=== PATIENT | male | born 1975 | race Caucasian/White ===

== ENCOUNTER 2016-08-17 16:39 | Observation (INO) | payer BC ==
[2016-08-17] MEDS ORDERED: ONDANSETRON 4 MG/2 ML VIAL IVP ONE (17:16)
[2016-08-17] MEDS ORDERED: NS 1,000 ML IV ONE (17:16)
[2016-08-17] MEDS ORDERED: HYDROmorphONE/DILAUDID 1 MG/ML SYR IVP ONE ×2 (17:16→18:07)
--- NOTE | 2016-08-17 17:16 | EDPHY ---
H & P Stated Complaint: LUQ Abd - Personal History Current Tetanus/Diphtheria Vaccine: Yes Current Tetanus Diphtheria and Acellular Pertussis (TDAP): Yes - Medical/Surgical History Hx Asthma: No Hx Chronic Respiratory Disease: No Hx Diabetes: No Hx Cardiac Disease: No Hx Renal Disease: No Hx Cirrhosis: No Hx Alcoholism: No Hx HIV/AIDS: No Hx Splenectomy or Spleen Trauma: No - Social History Smoking Status: Never smoked Time Seen by Provider: 08/17/16 17:02 HPI/ROS: CHIEF COMPLAINT: Left upper quadrant abdominal pain since 9:00 a.m. HISTORY OF PRESENT ILLNESS: 41-year-old male via private vehicle complaining of left upper quadrant abdominal pain since this morning. Positive nausea. Positive vomiting. Attempted to eat an apple which he shortly vomited. Last oral intake was last evening. No back or flank pain. No urinary complaints. No trauma. No history of abdominal surgery. No rash. No urinary symptoms. No dyspnea. No testicle pain. No fever or chills REVIEW OF SYSTEMS: A ten point review of systems was performed and is negative with the exception of the items mentioned in the HPI PAST MEDICAL & SURGICAL HISTORY: No history of chronic abdominal pathology or abdominal surgeries. SOCIAL HISTORY: Intermittent alcohol PHYSICAL EXAM (Prior to examination, patient consented to physical exam, hands were washed and my usual and customary physical exam procedures followed) 1) GENERAL: Well-developed, well-nourished, alert and oriented. Appears uncomfortable 2) HEAD: Normocephalic, atraumatic 3) HEENT: Pupils equal, round, reactive to light bilaterally. Sclera anicteric. Nasopharynx, oropharynx, clear, no lesions. Ears bilaterally with normal tympanic membranes. 4) NECK: Full range of motion, no meningeal signs. 5) LUNGS: Clear auscultation bilaterally, no wheezes, no rhonchi, no retractions. 6) HEART: Regular rate and rhythm, no murmur, no heave, no gallop. 7) ABDOMEN: Guarding left upper quadrant he has associated mild tenderness, however significant pain with quadrant at McBurney's point,patient states "I had no idea I had pain there", 8) MUSCULOSKELETAL: Moving all extremities, no focal areas of tenderness, no obvious trauma. No peripheral edema or discoloration. 9) BACK: No CVA tenderness, no midline vertebral tenderness, no fluctuance, no step-off, no obvious trauma, no visual or palpable abnormality. 10) SKIN: No rash, no petechiae. 11) : Normal male external genitalia, positive cremasteric reflex bilaterally DIFFERENTIAL DIAGNOSIS: My differential diagnosis includes, but is not limited to, acute appendicitis, acute cholecystitis, bowel obstruction, acute pancreatitis, testicular torsion, gastritis and urinary tract infection. The patient understands that this diagnosis is provisional and can never be 100% accurate. This is a partial list of diagnoses considered. These considerations are based on history, physical exam, past history and reassessment. (Marc Carver) Constitutional: Initial Vital Signs Temperature (C) 36.9 C 08/17/16 17:06 Heart Rate 74 08/17/16 17:06 Respiratory Rate 14 08/17/16 17:06 Blood Pressure 109/68 08/17/16 17:06 O2 Sat (%) 94 08/17/16 17:06 O2 Delivery Mode Room Air Allergies/Adverse Reactions: No Known Allergies Allergy (Unverified 08/17/16 17:06) Medical Decision Making ED Course/Re-evaluation: 5:20 p.m.: Discussed case with Dr. Wang Armendariz in ER 6:01 p.m.: CT interpreted by radiologist as positive for appendicitis with no perforation. Discussed this with the patient, remains NPO since last evening. He is complaining of continued pain in the right lower quadrant. 6:06 p.m.: Phone consultation with Dr. Jarred Owusu who will evaluate patient (Marc Carver) I did not see this patient while he was in the emergency department. However his care was discussed with the PA while the patient was in the department. I agree with treatment plan and management (Wang Armendariz) - Data Points Laboratory Results: Laboratory Results 08/17/16 17:00 08/17/16 17:00 08/17/16 08/17/16 08/17/16 18:00 17:06 17:00 WBC RBC Hgb POC Hgb 16.3 gm/dL gm/dL (14.5-17.3) Hct POC Hct 48 % % (42.8-50.6) MCV MCH MCHC RDW Plt Count MPV Neut % (Auto) Lymph % (Auto) [place] % (Auto) Eos % (Auto) Baso % (Auto) Nucleat RBC Rel Count Absolute Neuts (auto) Absolute Lymphs (auto) Absolute Monos (auto) Absolute Eos (auto) Absolute Basos (auto) Absolute Nucleated RBC Immature Gran % Immature Gran # POC Sodium 141 mEq/L mEq/L (134-144) Sodium 139 mEq/L mEq/L (134-144) POC Potassium 3.9 mEq/L mEq/L (3.3-5.0) Potassium 4.1 mEq/L mEq/L (3.5-5.2) POC Chloride 103 mEq/L mEq/L (96-108) Chloride 104 mEq/L mEq/L (97-110) Carbon Dioxide 22 mEq/l mEq/l (22-31) Anion Gap 13 mEq/L mEq/L (8-16) POC BUN 12 mg/dL mg/dL (7-23) BUN 13 mg/dL mg/dL (7-23) Creatinine 0.9 mg/dL mg/dL (0.7-1.3) POC Creatinine 1.0 mg/dL mg/dL (0.8-1.5) Estimated GFR > 60 Glucose 90 mg/dL mg/dL (70-100) POC Glucose 101 mg/dL H mg/dL (70-100) Calcium 9.7 mg/dL mg/dL (8.5-10.4) Total Bilirubin 1.7 mg/dL H mg/dL (0.1-1.4) Conjugated Bilirubin 0.3 mg/dL mg/dL (0.0-0.5) Unconjugated Bilirubin 1.4 mg/dL H mg/dL (0.0-1.1) AST 28 IU/L IU/L (17-59) ALT 29 IU/L IU/L (21-72) Alkaline Phosphatase 67 IU/L IU/L (38-126) Total Protein 7.6 g/dL g/dL (6.3-8.2) Albumin 4.5 g/dL g/dL (3.5-5.0) Lipase 68.0 IU/L IU/L (23-300) Urine Color YELLOW Urine Appearance CLEAR Urine pH 7.0 (5.0-7.5) Ur Specific [place] 1.024 (1.002-1.030) Urine Protein NEGATIVE (NEGATIVE) Urine Ketones 1+ H (NEGATIVE) Urine Blood NEGATIVE (NEGATIVE) Urine Nitrate NEGATIVE (NEGATIVE) Urine Bilirubin NEGATIVE (NEGATIVE) Urine Urobilinogen NEGATIVE EU EU (0.2-1.0) Ur Leukocyte Esterase NEGATIVE (NEGATIVE) Urine RBC 1-3 /hpf /hpf (0-3) Urine WBC NONE SEEN /hpf /hpf (0-3) Ur Epithelial Cells NONE SEEN /lpf /lpf (NONE-1+) Urine Mucus TRACE /lpf /lpf (NONE-1+) Urine Glucose NEGATIVE (NEGATIVE) 08/17/16 17:00 WBC 14.45 10^3/uL H 10^3/uL (3.80-9.50) RBC 5.13 10^6/uL 10^6/uL (4.40-6.38) Hgb 17.4 g/dL g/dL (13.7-17.5) POC Hgb Hct 48.7 % % (40.0-51.0) POC Hct MCV 94.9 fL fL (81.5-99.8) MCH 33.9 pg pg (27.9-34.1) MCHC 35.7 g/dL g/dL (32.4-36.7) RDW 12.4 % % (11.5-15.2) Plt Count 192 10^3/uL 10^3/uL (150-400) MPV 9.0 fL fL (8.7-11.7) Neut % (Auto) 87.5 % H % (39.3-74.2) Lymph % (Auto) 9.1 % L % (15.0-45.0) [place] % (Auto) 2.9 % L % (4.5-13.0) Eos % (Auto) 0.1 % L % (0.6-7.6) Baso % (Auto) 0.1 % L % (0.3-1.7) Nucleat RBC Rel Count 0.0 % % (0.0-0.2) Absolute Neuts (auto) 12.63 10^3/uL H 10^3/uL (1.70-6.50) Absolute Lymphs (auto) 1.31 10^3/uL 10^3/uL (1.00-3.00) Absolute Monos (auto) 0.42 10^3/uL 10^3/uL (0.30-0.80) Absolute Eos (auto) 0.02 10^3/uL L 10^3/uL (0.03-0.40) Absolute Basos (auto) 0.02 10^3/uL 10^3/uL (0.02-0.10) Absolute Nucleated RBC 0.00 10^3/uL 10^3/uL (0-0.01) Immature Gran % 0.3 % % (0.0-1.1) Immature Gran # 0.05 10^3/uL 10^3/uL (0.00-0.10) POC Sodium Sodium POC Potassium Potassium POC Chloride Chloride Carbon Dioxide Anion Gap POC BUN BUN Creatinine POC Creatinine Estimated GFR Glucose POC Glucose Calcium Total Bilirubin Conjugated Bilirubin Unconjugated Bilirubin AST ALT Alkaline Phosphatase Total Protein Albumin Lipase Urine Color Urine Appearance Urine pH Ur Specific [place] Urine Protein Urine Ketones Urine Blood Urine Nitrate Urine Bilirubin Urine Urobilinogen Ur Leukocyte Esterase Urine RBC Urine WBC Ur Epithelial Cells Urine Mucus Urine Glucose Medications Given: Discontinued Medications Hydromorphone HCl (Dilaudid) 1 mg IVP EDNOW ONE Stop: 08/17/16 17:17 Last Admin: 08/17/16 17:31 Dose: 1 mg Hydromorphone HCl (Dilaudid) 1 mg IVP EDNOW ONE Stop: 08/17/16 18:08 Last Admin: 08/17/16 18:25 Dose: 1 mg Sodium Chloride (Ns) 1,000 mls @ 0 mls/hr IV ONCE ONE PRN Reason: Wide Open Stop: 08/17/16 17:17 Last Admin: 08/17/16 17:31 Dose: 1,000 mls Ertapenem 1 gm/ Sodium (Chloride) 100 mls @ 200 mls/hr IV EDNOW ONE PRN Reason: Protocol Stop: 08/17/16 18:31 Last Admin: 08/17/16 18:25 Dose: 100 mls Ondansetron HCl (Zofran) 4 mg IVP EDNOW ONE Stop: 08/17/16 17:17 Last Admin: 08/17/16 17:31 Dose: 4 mg Point of Care Test Results: 08/17/16 17:06 POC Sodium 141 POC Potassium 3.9 POC Chloride 103 POC BUN 12 POC Creatinine 1.0 POC Glucose 101 H Departure - Departure Disposition: [facility] Inpatient Acute Clinical Impression: Acute appendicitis Qualifiers: Acute appendicitis type: with localized peritonitis Qualified Code(s): K35.3 - Acute appendicitis with localized peritonitis Condition: Fair
[2016-08-17 17:20] LABS: % IMMATURE GRANULYOCYTES 0.3 % (0.0-1.1); ABSOLUTE IMMATURE GRANULOCYTES 0.05 10^3/uL (0.00-0.10); ADD DIFF? NO; ADD MORPH? NO; ADD SCAN? NO; ATYPICAL LYMPHOCYTE FLAG 0 (0-99); FRAGMENT RBC FLAG 0 (0-99); HEMATOCRIT 48.7 % (40.0-51.0); HEMOGLOBIN 17.4 g/dL (13.7-17.5); LEFT SHIFT FLG 10 (0-99); LIPEMIA HEMOLYSIS FLAG 90 (0-99); MEAN CELL HEMOGLOBIN 33.9 pg (27.9-34.1); MEAN CELL HEMOGLOBIN CONCENTR. 35.7 g/dL (32.4-36.7); MEAN CELL VOLUME 94.9 fL (81.5-99.8); PLATELET CLUMPS FLAG 0 (0-99); PLATELET COUNT 192 10^3/uL (150-400); RED BLOOD CELL COUNT 5.13 10^6/uL (4.40-6.38); RED CELL DISTRIBUTION WIDTH 12.4 % (11.5-15.2)
[2016-08-17] MEDS ORDERED: IOPAMIDOL (ISOVUE-300) 100 ML BTL IV ONE (17:41)
[2016-08-17 18:01] LABS: ALANINE AMINOTRANSFERASE 29 IU/L (21-72); ALBUMIN 4.5 g/dL (3.5-5.0); ALKALINE PHOSPHATASE 67 IU/L (38-126); ANION GAP 13 mEq/L (8-16); ASPARTATE AMINOTRANSFERASE 28 IU/L (17-59); BILIRUBIN,TOTAL 1.7 mg/dL (0.1-1.4); BILIRUBIN-CONJUGATED 0.3 mg/dL (0.0-0.5); BILIRUBIN-UNCONJUGATED 1.4 mg/dL (0.0-1.1); CALCIUM 9.7 mg/dL (8.5-10.4); CARBON DIOXIDE 22 mEq/l (22-31); CHLORIDE 104 mEq/L (97-110); CREATININE 0.9 mg/dL (0.7-1.3); GLOMERULAR FILTRATION RATE > 60; GLUCOSE 90 mg/dL (70-100); POTASSIUM 4.1 mEq/L (3.5-5.2); SODIUM 139 mEq/L (134-144); TOTAL PROTEIN 7.6 g/dL (6.3-8.2)
[2016-08-17] MEDS ORDERED: ERTAPENEM 1 GM in NS 100 ML IV ONE (18:02)
[2016-08-17 18:13] LABS: COLOR YELLOW; LEUKOCYTE ESTERASE,URINE NEGATIVE (NEGATIVE); NITRITE,URINE NEGATIVE (NEGATIVE)
[2016-08-17 18:19] LABS: MUCUS TRACE /lpf (NONE-1+)
[2016-08-17 18:20] LABS: WBC,URINE NONE SEEN /hpf (0-3)
[2016-08-17] MEDS ORDERED: HYDROmorphONE/DILAUDID 2 MG/ML INJ ONE (19:17)
[2016-08-17] MEDS ORDERED: MIDAZOLAM 2 MG/2 ML VIAL ONE (19:19)
[2016-08-17] MEDS ORDERED: LIDOCAINE 2% 5 ML SDV ONE (19:25)
[2016-08-17] MEDS ORDERED: fentaNYL 100 MCG/2 ML INJ ONE ×2 (19:25→20:08)
[2016-08-17] MEDS ORDERED: ROCURONIUM 100 MG/10 ML VIAL ONE (19:25)
[2016-08-17] MEDS ORDERED: PROPOFOL 200 MG/20 ML VIAL ONE (19:25)
[2016-08-17] MEDS ORDERED: ONDANSETRON 4 MG/2 ML VIAL ONE (19:36)
[2016-08-17] MEDS ORDERED: SUGAMMADEX SODIUM 200 MG/2 ML VIAL IVP ONE (19:36)
[2016-08-17] MEDS ORDERED: DEXAMETHASONE 4 MG/ML VIAL ONE (19:36)
[2016-08-17] MEDS ORDERED: KETOROLAC 30 MG/1 ML SDV ONE (20:26)
[2016-08-17] MEDS ORDERED: SKIN ADHESIVE (DERMABOND) 1 EACH TP ONE (20:28)
[2016-08-17] MEDS ORDERED: ONDANSETRON 4 MG/2 ML VIAL IVP PRN (20:36)
--- NOTE | 2016-08-17 20:40 | POSTOPPROG ---
Post Op Note Date of Operation: 08/17/16 Surgeon: Jarred Owusu Anesthesia: GET(General Endotracheal) Pre-op Diagnosis: acute appy Post-op Diagnosis: same Indication: same Procedure: lap appy Findings: acute appy Inf/Abcess present in the surg proc area at time of surgery?: No EBL: Minimal Complications: none Specimen(s): appendix
[2016-08-17] MEDS ORDERED: LR 1,000 ML IV SCH (21:00)
--- NOTE | 2016-08-17 21:40 | GOP ---
DATE OF OPERATION: SURGEON: Jarred Owusu MD CAD DETAILER: Juanjo Bradford. PREOPERATIVE DIAGNOSIS: Acute appendicitis. POSTOPERATIVE DIAGNOSIS: Acute appendicitis. PROCEDURE PERFORMED: Laparoscopic appendectomy. FINDINGS: INDICATIONS: Patient is a 41-year-old male with clinical picture of acute appendicitis with leukocy tosis and a positive CT scan. DESCRIPTION OF PROCEDURE: General anesthetic. The abdomen scrubbed with ChloraPrep, draped in the usual sterile fashion. Infraumbilical incision made. Veress needle used to achieve a pneumoperiton eum. A 12 mm port was placed. Two additional 5 mm ports. There was free fluid in the pelvis, whic h was somewhat turbid. The appendix was identified. Its distal half seemed necrotic, but no obviou s perforation. The mesoappendix was harvested with a Harmonic scalpel until the cecum was identifie d. Then, the appendix amputated flush on the cecum with an Endo JOSE 45 blue cartridge. The appendi x was placed in an Endopouch and brought out through the fascial defect at the umbilicus. Irrigatio n was used to clean out the pelvis and suck away all the turbid fluid. After which, the fascial def ect at the umbilicus was closed with 0 Vicryl, skin with 4-0 Monocryl and Dermabond. The patient to lerated the procedure well. SURGEON: Dr. Jarred Owusu. /[id number]/MODL
[2016-08-17] MEDS: HYDROCODONE/APAP 5/325 TAB PO PRN (23:19)
[2016-08-18] MEDS: HYDROCODONE/APAP 5/325 TAB PO PRN (05:38)
--- NOTE | 2016-08-18 07:32 | GDS ---
PRESENT ILLNESS: Patient was admitted with acute appendicitis. HOSPITAL COURSE: Patient had a laparoscopic appendectomy. Found to have a nonperforated, suppurati ve appendicitis. On the morning of discharge, he is afebrile, tolerating a diet. DISPOSITION: Home. FOLLOWUP: With Dr. Owusu in a week. /[id number]/MODL
[2016-08-18 07:52] VITALS: BP 104/77; PULSE 62; RESP 14; TEMP 97.9; O2SAT 92
== END 2016-08-18 10:22 | disposition home or self-care (01) ==
LOC: INTOOBSV 18:01 → F3E 21:44
PROVIDERS: ADMIT Surgery; ATTEND Surgery
PROC: 0DTJ4ZZ Resection of Appendix, Percutaneous Endoscopic Approach (ICD-10-PCS; principal; 2016-08-17 19:37)
DX: K35.80 Unspecified acute appendicitis (principal)
CPT/HCPCS: 44970; 74177; G0378; 82947-QW; 96374; J1100; J1170; J1335; J1885; J2250; J2405; J2704; J3010; Q9967